=== PATIENT | male | born 1995 | race African-American/Black ===

== ENCOUNTER 2020-03-03 22:26 | Emergency (ER) | payer BC ==
[~2020-03-03] VITALS: Ht 175.3 cm; Wt 73.0 kg
[2020-03-03] MEDS ORDERED: KETOROLAC TROMETHAMINE INJ 30 MG/ML VIAL ONE (22:47)
[2020-03-03] MEDS ORDERED: KETOROLAC TROMETHAMINE INJ 30 MG/ML VIAL IV ONE (23:00)
[2020-03-03] MEDS ORDERED: IV NS 0.9% 1,000 ML BAG IV ONE (23:00)
--- NOTE | 2020-03-03 23:01 | NUR ---
BIBS. R WRIST PAIN SINCE THRUSDAY TO ER BED 1, LINE STARTED BLOOD SENT TO LAB
[2020-03-03 23:11] LABS: BASOPHILS % (AUTO) 0.5 % (0.0-2.0); EOSINOPHILS % (AUTO) 2.1 % (0.0-6.0); HEMATOCRIT 37 % (39-51); HEMOGLOBIN 11.6 g/dL (13.5-17.5); LYMPHOCYTES # (AUTO) 3.1 /CMM (0.8-4.8); LYMPHOCYTES % (AUTO) 36.2 % (20.0-44.0); MEAN CORPUSCULAR HGB CONC 31 g/dl (31.0-36.0); MEAN CORPUSCULAR VOLUME 71 fL (80-96); MONOCYTES # (AUTO) 1.2 /CMM (0.1-1.30); MONOCYTES % (AUTO) 14.4 % (2.0-12.0); NEUTROPHILS % (AUTO) 46.8 % (43.0-81.0); PLATELET COUNT (AUTO) 192 /CMM (150-450); RED BLOOD CELL COUNT(AUTO) 5.23 MIL/uL (4.5-6.0); WHITE BLOOD COUNT (AUTO) 8.6 K/uL (4.3-11.0)
[2020-03-03 23:19] LABS: CALCIUM, SERUM 8.6 mg/dL (8.5-10.1); CREATININE 0.9 mg/dL (0.6-1.3); POTASSIUM 3.4 mmol/L (3.5-5.1)
[2020-03-03 23:24] LABS: ALBUMIN 3.5 g/dL (3.4-5.0); BILIRUBIN,DIRECT 0.1 mg/dL (0.0-0.2); BILIRUBIN,TOTAL 0.3 mg/dL (0.2-1.0); TOTAL PROTEIN, SERUM 7.1 g/dL (6.4-8.2)
[2020-03-03 23:42] LABS: URIC ACID 3.3 mg/dL (2.6-7.2)
[2020-03-04 00:09] LABS: C-REACTIVE PROTEIN 3.5 mg/dL (0.0-0.9)
--- NOTE | 2020-03-04 00:53 | NUR ---
Patient discharged to home in stable condition. Written and verbal after care instructions given. Patient verbalizes understanding of instruction.
[2020-03-04 00:54] VITALS: BP 129/78
== END 2020-03-04 00:54 | disposition home or self-care (01) ==
LOC: ER 22:31
DX: M25.531 Pain in right wrist (principal); M25.561 Pain in right knee; R94.31 Abnormal electrocardiogram [ECG] [EKG]
CPT/HCPCS: 36415; 80048; 80076; 84550; 85025; 85652; 86140; 87040 ×2; 93005; 96374; 99284; J1885; J7030

== ENCOUNTER 2022-11-21 07:53 | Emergency (ER) | payer BC, OTHER ==
[~2022-11-21] VITALS: Ht 177.8 cm; Wt 59.9 kg
--- NOTE | 2022-11-21 08:20 | NUR ---
Norris cifuentes in ED - 11/21/22 at [address] MOCTEZUMA OPTION [address]. DR. MOCTEZUMA SPEAKING WITH DR. MCCONNELL.
[2022-11-21] MEDS ORDERED: KETOROLAC TROMETHAMINE INJ 30 MG/ML VIAL IV ONE (08:30)
--- NOTE | 2022-11-21 08:30 | NUR ---
PT IN BED 4 A/O X4 TOLORATING ROOM AIR 99% O2SAT. DENIES SOB. REPORTS 3 DAYS OF CHEST DISCOMFORT/ TIGHTNESS 02/19. BED IN LOWEST POSTION AND LOCKED. CONNECTED TO BEDISDE O2 MONITOR AND BP MONITORING.
[2022-11-21] MEDS ORDERED: KETOROLAC TROMETHAMINE 15 MG/ML VIAL ONE (08:34)
[2022-11-21 08:47] LABS: CALCIUM, SERUM 9.1 mg/dL (8.5-10.1); CARBON DIOXIDE 27 mmol/L (21-32); CHLORIDE 105 mmol/L (98-107); CREATININE 0.9 mg/dL (0.6-1.3); GLUCOSE 99 mg/dL (74-106); POTASSIUM 4.1 mmol/L (3.5-5.1); SODIUM SERUM 140 mmol/L (136-145); UREA NITROGEN, BLOOD 9 mg/dL (7-18)
--- NOTE | 2022-11-21 08:51 | NUR ---
LAC 20G STARTED BLOOD DRAWN AND SENT TO LAB
--- NOTE | 2022-11-21 08:52 | NUR ---
CHEST X RAY AND EKG DONE.
[2022-11-21 09:39] LABS: BASOPHILS % (AUTO) 0.6 % (0.0-2.0); EOSINOPHILS % (AUTO) 4.4 % (0.0-6.0); HEMATOCRIT 45 % (39-51); HEMOGLOBIN 13.8 g/dL (13.5-17.5); LYMPHOCYTES # (AUTO) 1.8 K/uL (0.8-4.8); LYMPHOCYTES % (AUTO) 43.6 % (20.0-44.0); MEAN CORPUSCULAR HGB CONC 31 g/dl (31.0-36.0); MEAN CORPUSCULAR VOLUME 69 fL (80-96); MONOCYTES # (AUTO) 0.3 K/uL (0.1-1.30); MONOCYTES % (AUTO) 7.8 % (2.0-12.0); NEUTROPHILS # (AUTO) 1.8 K/uL (1.8-8.9); NEUTROPHILS % (AUTO) 43.6 % (43.0-81.0); PLATELET COUNT (AUTO) 228 K/uL (150-450); RED BLOOD CELL COUNT(AUTO) 6.47 MIL/uL (4.5-6.0); WHITE BLOOD COUNT (AUTO) 4.1 K/uL (4.3-11.0)
[2022-11-21 10:33] VITALS: BP 136/85
[2022-11-21 12:48] LABS: EOSINOPHILS % (MANUAL) 4 % (0-4); LYMPHOCYTES % (MANUAL) 47 % (16-48); MONOCYTES % (MANUAL) 8 % (0-11.0); NEUTROPHILS % (MANUAL) 41 (42-76)
== END 2022-11-21 10:34 | disposition home or self-care (01) ==
LOC: ER 08:04
DX: R07.9 Chest pain, unspecified (principal); F17.200 Nicotine dependence, unspecified, uncomplicated; Z88.0 Allergy status to penicillin; Z60.2 Problems related to living alone
CPT/HCPCS: 99285; 96374; 71045; 93005 ×3; 85025; 80048; 83735; 36415; 84484; 85007; J1885